=== PATIENT | male | born 1940 | race Two or more races ===

== ENCOUNTER 2022-05-24 12:22 | Inpatient (IN) | payer MEDICARE, MEDICAID ==
[~2022-05-24] VITALS: Ht 165.1 cm; Wt 69.4 kg
[2022-05-24] MEDS ORDERED: ASPIRIN 81MG TABLET PO ONE (12:45)
[2022-05-24] MEDS ORDERED: NITROGLYCERIN 0.4MG TABLET SL SL PRN ×2 (12:45→16:30)
[2022-05-24 14:08] LABS: BASOPHILS % 0.5 % (0.0-2.0); EOSINOPHILS % 0.5 % (0.0-5.0); HEMATOCRIT. 29.7 % (42.0-52.0); HEMOGLOBIN. 10.2 g/dL (14.0-18.0); LYMPHOCYTES % 19.8 % (20.0-50.0); MEAN CORPUSCULAR HEMOGLOBIN 30.9 pg (28.0-32.0); MEAN CORPUSCULAR VOLUME 90.1 fL (80.0-94.0); MEAN PLATELET VOLUME 8.7 fl (7.4-10.4); MONOCYTES % 6.1 % (2.0-8.0); NEUTROPHILS % 73.1 % (40.0-76.0); PLATELET 244 x1000/uL (130-400); RED CELL DISTRIBUTION WIDTH 14.2 % (11.6-14.6)
[2022-05-24 14:36] LABS: CHLORIDE 105 mEq/L (98-107)
[2022-05-24] MEDS ORDERED: ALBUTEROL (0.083%) 2.5MG/3ML NEB HHN ONE (16:00)
[2022-05-24] MEDS ORDERED: SODIUM POLYSTYRENE SULFONATE 15 G/60 ML BOT PO ONE (16:00)
[2022-05-24] MEDS ORDERED: DEXTROSE 50% WATER 50ML SYRINGE IV PRN (16:30)
[2022-05-24] MEDS ORDERED: ONDANSETRON HCL 4MG/2ML INJ IV PRN (16:30)
[2022-05-24] MEDS ORDERED: GUAIFENESIN 200MG/10ML SUGAR FREE UDC PO PRN (16:30)
[2022-05-24] MEDS ORDERED: SODIUM POLYSTYRENE SULFONATE 15 G/60 ML BOT PO NR (16:30)
[2022-05-24] MEDS ORDERED: ACETAMINOPHEN 325MG TABLET PO PRN ×2 (16:30)
[2022-05-24] MEDS ORDERED: ZOLPIDEM TARTRATE 5MG TABLET PO PRN (16:30)
[2022-05-24] MEDS ORDERED: DOCUSATE SODIUM 100MG CAPSULE PO PRN (16:30)
[2022-05-24] MEDS ORDERED: IPRATROPIUM/ALBUTEROL 0.5-3(2.5)MG/3ML NEB NEB PRN (16:30)
[2022-05-24] MEDS ORDERED: DILTIAZEM HCL 60MG TABLET PO ONE (16:30)
[2022-05-24] MEDS ORDERED: MAGNESIUM/ALUMINUM HYDROXIDE/SIMETHICONE 30ML UDC PO PRN (16:30)
[2022-05-24] MEDS: BLOOD SUGAR DIAGNOSTIC STRIP TEST SCH ×2 (17:00→20:34)
[2022-05-24] MEDS: INSULIN LISPRO 100 UNITS/ML SUBCUT SCH ×2 (17:38→20:35)
[2022-05-24 18:09] VITALS: BP 138/88
[2022-05-24 18:22] LABS: T4 FREE 1.38 ng/dL (0.76-1.46)
[2022-05-24 18:44] LABS: VITAMIN B12 SERUM 443 pg/mL (211-911)
[2022-05-24] MEDS: FAMOTIDINE 20MG TABLET PO SCH (20:34)
[2022-05-24] MEDS: SODIUM BICARBONATE 8.4% 1 MEQ/ML 50ML SYR IV NR ×2 (20:45→23:20)
[2022-05-25] VITALS (17 sets, daily range): BP systolic 104–164; BP diastolic 62–82
[2022-05-25] LABS: CREATINE KINASE MB FRACTION 2.5 ng/mL (0.5-3.6)
[2022-05-25] MEDS: BLOOD SUGAR DIAGNOSTIC STRIP TEST SCH ×4 (05:57→21:48)
[2022-05-25] MEDS: INSULIN LISPRO 100 UNITS/ML SUBCUT SCH ×4 (07:20→21:00)
[2022-05-25 07:33] LABS: BASOPHILS % 0.5 % (0.0-2.0); EOSINOPHILS % 1.1 % (0.0-5.0); HEMATOCRIT. 26.9 % (42.0-52.0); LYMPHOCYTES % 25.6 % (20.0-50.0); MEAN CORPUSCULAR HEMOGLOBIN 30.5 pg (28.0-32.0); MEAN CORPUSCULAR VOLUME 91.1 fL (80.0-94.0); MEAN PLATELET VOLUME 8.1 fl (7.4-10.4); MONOCYTES % 9.4 % (2.0-8.0); NEUTROPHILS % 63.4 % (40.0-76.0); PLATELET 223 x1000/uL (130-400); RED BLOOD CELL COUNT 2.95 mill/uL (4.7-6.1); RED CELL DISTRIBUTION WIDTH 14.3 % (11.6-14.6)
[2022-05-25 08:02] LABS: CHLORIDE 108 mEq/L (98-107)
[2022-05-25 08:16] LABS: CREATINE KINASE 71 IU/L (39-308); CREATINE KINASE MB FRACTION 2.1 ng/mL (0.5-3.6); PHOSPHORUS 4.2 mg/dL (2.5-4.9)
[2022-05-25] MEDS: ASPIRIN 325MG EC TABLET PO SCH (08:40)
[2022-05-25] MEDS: ENOXAPARIN 30MG/0.3ML SYR SUBCUT SCH (08:40)
[2022-05-25] MEDS ORDERED: SODIUM POLYSTYRENE SULFONATE 15 G/60 ML BOT PO SCH (10:00)
[2022-05-25] MEDS ORDERED: NALOXONE HCL 0.4MG/ML VIAL IV PRN (17:00)
[2022-05-25] MEDS ORDERED: DILTIAZEM HCL 5MG/ML 5ML VIAL IV PRN (20:15)
[2022-05-25] MEDS ORDERED: SODIUM CHLORIDE 0.9% 250 ML IV ONE ×2 (20:15→20:30)
[2022-05-25] MEDS ORDERED: EPOETIN ALFA-EPBX 4,000 UNIT/ML VIAL SUBCUT SCH (21:00)
[2022-05-25] MEDS: FAMOTIDINE 20MG TABLET PO SCH (21:47)
[2022-05-25] MEDS: DILTIAZEM HCL 30MG TABLET PO SCH (21:47)
[2022-05-25] MEDS: TRAMADOL 50MG TABLET PO PRN (21:48)
[2022-05-26] VITALS (8 sets, daily range): BP systolic 122–168; BP diastolic 62–79
[2022-05-26] MEDS: INSULIN LISPRO 100 UNITS/ML SUBCUT SCH ×2 (07:13→12:06)
[2022-05-26] MEDS: BLOOD SUGAR DIAGNOSTIC STRIP TEST SCH ×2 (07:13→12:06)
[2022-05-26] MEDS: DILTIAZEM HCL 30MG TABLET PO SCH ×3 (07:14→21:48)
[2022-05-26] MEDS: ENOXAPARIN 30MG/0.3ML SYR SUBCUT SCH (10:16)
[2022-05-26] MEDS: ASPIRIN 325MG EC TABLET PO SCH (10:16)
[2022-05-26 12:52] LABS: CLARITY URINE CLEAR (CLEAR); COLOR URINE YELLOW (YELLOW); KETONES URINE NEGATIVE (NEGATIVE); LEUKOCYTE ESTERASE URINE TRACE (NEGATIVE); NITRITE URINE NEGATIVE (NEGATIVE); OCCULT BLOOD URINE NEGATIVE (NEGATIVE); PH URINE 5.5 (4.5-8.0); PROTEIN URINE 1+ (NEGATIVE); SPECIFIC GRAVITY URINE 1.015 (1.005-1.030); UROBILINOGEN URINE 0.2 E.U./dL (0.2-1.0)
[2022-05-26 15:46] LABS: BASOPHILS % 0.8 % (0.0-2.0); EOSINOPHILS % 1.4 % (0.0-5.0); HEMATOCRIT. 24.9 % (42.0-52.0); HEMOGLOBIN. 8.4 g/dL (14.0-18.0); LYMPHOCYTES % 33.4 % (20.0-50.0); MEAN CORPUSCULAR HEMOGLOBIN 30.4 pg (28.0-32.0); MEAN CORPUSCULAR VOLUME 90.4 fL (80.0-94.0); MEAN PLATELET VOLUME 8.9 fl (7.4-10.4); MONOCYTES % 9.6 % (2.0-8.0); NEUTROPHILS % 54.8 % (40.0-76.0); PLATELET 209 x1000/uL (130-400); RED BLOOD CELL COUNT 2.75 mill/uL (4.7-6.1); RED CELL DISTRIBUTION WIDTH 14.1 % (11.6-14.6)
[2022-05-26 16:15] LABS: PHOSPHORUS 4.5 mg/dL (2.5-4.9)
[2022-05-26] MEDS: TRAMADOL 50MG TABLET PO PRN (17:28)
[2022-05-26] MEDS: FAMOTIDINE 20MG TABLET PO SCH (21:48)
[2022-05-27] VITALS (7 sets, daily range): BP systolic 107–168; BP diastolic 58–79
[2022-05-27] MEDS: DILTIAZEM HCL 30MG TABLET PO SCH ×4 (06:21→21:01)
[2022-05-27 06:47] LABS: BASOPHILS % 0.6 % (0.0-2.0); EOSINOPHILS % 2.5 % (0.0-5.0); HEMATOCRIT. 26.4 % (42.0-52.0); HEMOGLOBIN. 8.9 g/dL (14.0-18.0); MEAN CORPUSCULAR HEMOGLOBIN 30.2 pg (28.0-32.0); MEAN CORPUSCULAR VOLUME 89.8 fL (80.0-94.0); MEAN PLATELET VOLUME 8.4 fl (7.4-10.4); MONOCYTES % 9.3 % (2.0-8.0); NEUTROPHILS % 46.6 % (40.0-76.0); PLATELET 219 x1000/uL (130-400); RED BLOOD CELL COUNT 2.94 mill/uL (4.7-6.1); RED CELL DISTRIBUTION WIDTH 13.9 % (11.6-14.6)
[2022-05-27 07:21] LABS: PHOSPHORUS 3.8 mg/dL (2.5-4.9)
[2022-05-27] MEDS: ASPIRIN 325MG EC TABLET PO SCH (08:44)
[2022-05-27] MEDS: ENOXAPARIN 30MG/0.3ML SYR SUBCUT SCH (08:44)
[2022-05-27] MEDS: IRON SUCROSE COMPLEX 100 MG/5 ML ML IV SCH (13:13)
[2022-05-27] MEDS: FAMOTIDINE 20MG TABLET PO SCH (20:59)
[2022-05-27] MEDS: ATORVASTATIN CALCIUM 40MG TABLET PO SCH (20:59)
[2022-05-28] VITALS: BP 154/70
[2022-05-28 04:00] VITALS: BP 144/67
[2022-05-28] MEDS: DILTIAZEM HCL 30MG TABLET PO SCH ×3 (06:13→20:42)
[2022-05-28 07:05] LABS: BASOPHILS % 0.9 % (0.0-2.0); EOSINOPHILS % 2.5 % (0.0-5.0); HEMATOCRIT. 24.6 % (42.0-52.0); HEMOGLOBIN. 8.3 g/dL (14.0-18.0); LYMPHOCYTES % 38.7 % (20.0-50.0); MEAN CORPUSCULAR HEMOGLOBIN 30.5 pg (28.0-32.0); MEAN CORPUSCULAR VOLUME 90.2 fL (80.0-94.0); MEAN PLATELET VOLUME 8.7 fl (7.4-10.4); MONOCYTES % 10.1 % (2.0-8.0); NEUTROPHILS % 47.8 % (40.0-76.0); PLATELET 216 x1000/uL (130-400); RED BLOOD CELL COUNT 2.73 mill/uL (4.7-6.1); RED CELL DISTRIBUTION WIDTH 13.9 % (11.6-14.6)
[2022-05-28 07:26] LABS: PHOSPHORUS 3.9 mg/dL (2.5-4.9)
[2022-05-28 08:00] VITALS: BP 139/61
[2022-05-28] MEDS: ENOXAPARIN 30MG/0.3ML SYR SUBCUT SCH (09:53)
[2022-05-28] MEDS: ASPIRIN 325MG EC TABLET PO SCH (09:53)
[2022-05-28 12:00] VITALS: BP 139/90
[2022-05-28] MEDS: IRON SUCROSE COMPLEX 100 MG/5 ML ML IV SCH (15:57)
[2022-05-28 16:00] VITALS: BP 154/81
[2022-05-28 20:00] VITALS: BP 167/85
[2022-05-28] MEDS: FAMOTIDINE 20MG TABLET PO SCH (20:41)
[2022-05-28] MEDS: ATORVASTATIN CALCIUM 40MG TABLET PO SCH (20:43)
[2022-05-29] VITALS (7 sets, daily range): BP systolic 134–180; BP diastolic 52–77
[2022-05-29] MEDS: DILTIAZEM HCL 30MG TABLET PO SCH ×2 (05:23→13:39)
[2022-05-29] MEDS: CLONIDINE 0.1MG TABLET PO PRN ×2 (06:24→14:40)
[2022-05-29 06:35] LABS: BASOPHILS % 0.6 % (0.0-2.0); EOSINOPHILS % 1.5 % (0.0-5.0); HEMATOCRIT. 27.2 % (42.0-52.0); HEMOGLOBIN. 9.1 g/dL (14.0-18.0); LYMPHOCYTES % 36.3 % (20.0-50.0); MEAN CORPUSCULAR HEMOGLOBIN 30.5 pg (28.0-32.0); MEAN CORPUSCULAR VOLUME 91.3 fL (80.0-94.0); MEAN PLATELET VOLUME 8.6 fl (7.4-10.4); NEUTROPHILS % 53.6 % (40.0-76.0); PLATELET 225 x1000/uL (130-400); RED BLOOD CELL COUNT 2.98 mill/uL (4.7-6.1)
[2022-05-29] MEDS: ENOXAPARIN 30MG/0.3ML SYR SUBCUT SCH (09:25)
[2022-05-29] MEDS: ASPIRIN 325MG EC TABLET PO SCH (09:25)
[2022-05-29 10:49] LABS: PHOSPHORUS 3.6 mg/dL (2.5-4.9)
[2022-05-29] MEDS: IRON SUCROSE COMPLEX 100 MG/5 ML ML IV SCH (13:38)
[2022-06-16] MEDS ORDERED: METO25TA6 PO (12:22)
[2022-06-16] MEDS ORDERED: AMLO10TA80 PO (12:22)
[2022-06-16] MEDS ORDERED: MEMA10TA2 PO (12:22)
== END 2022-05-29 17:04 | DRG 205 ==
LOC: ER 12:22 → 3WST 16:10 → SUPCPDRO 16:25 → ENRESERV 16:28
PROVIDERS: ADMIT Internal Medicine; ATTEND Internal Medicine
DX: M94.0 Chondrocostal junction syndrome [Tietze] (principal); N17.0 Acute kidney failure with tubular necrosis; E44.0 Moderate protein-calorie malnutrition; I47.1 Supraventricular tachycardia; I25.110 Atherosclerotic heart disease of native coronary artery with unstable angina pectoris; N18.4 Chronic kidney disease, stage 4 (severe); E87.1 Hypo-osmolality and hyponatremia; E87.5 Hyperkalemia; D63.8 Anemia in other chronic diseases classified elsewhere; E78.5 Hyperlipidemia, unspecified; Z68.25 Body mass index [BMI] 25.0-25.9, adult; E11.40 Type 2 diabetes mellitus with diabetic neuropathy, unspecified; I12.9 Hypertensive chronic kidney disease with stage 1 through stage 4 chronic kidney disease, or unspecified chronic kidney disease; I45.10 Unspecified right bundle-branch block; E11.22 Type 2 diabetes mellitus with diabetic chronic kidney disease; I48.91 Unspecified atrial fibrillation; Z95.1 Presence of aortocoronary bypass graft; Z82.49 Family history of ischemic heart disease and other diseases of the circulatory system; Z83.3 Family history of diabetes mellitus; Z79.4 Long term (current) use of insulin
CPT/HCPCS: 36415; 71045; 76770; 80048; 80053; 80061; 81003; 82550; 82553; 82607; 82728; 82746; 82962; 83036; 83540; 83550; 83735; 83880; 84100; 84132; 84439; 84443; 84484; 85025; 93005; 93306; 93970; 99291; J0885; J1650; J3490